=== PATIENT | male | born 1985 ===

== ENCOUNTER 2017-07-10 19:04 | Emergency (ER) | payer SELFPAY ==
[2017-07-10 19:30] VITALS: BP 135/90
[2017-07-10] MEDS ORDERED: TYLENOL PO ONE (19:49)
[2017-07-10 19:51] LABS: Basophils # (Auto) 0.1 K/mm3 (0.0-0.1); Basophils % (Auto) 2.1 % (0.0-1.8); Eosinophils # (Auto) 0.2 K/mm3 (0.0-0.4); Hematocrit 44.3 % (35.5-45.6); Hemoglobin 14.4 gm/dl (11.8-15.2); Lymphocytes # (Auto) 1.9 K/mm3 (1.2-5.4); Lymphocytes % (Auto) 41.5 % (13.4-35.0); Mean Corpuscular HGB Conc 33 % (32-34); Mean Corpuscular Hemoglobin 28 pg (28-32); Mean Corpuscular Volume 85 fl (84-94); Monocytes # (Auto) 0.3 K/mm3 (0.0-0.8); Monocytes % (Auto) 7.6 % (0.0-7.3); Platelet Count 169 K/mm3 (140-440); Red Blood Count 5.23 M/mm3 (3.65-5.03); Red Cell Distribution Width 13.9 % (13.2-15.2)
--- NOTE | 2017-07-10 19:58 | Emergency Department Report ---
HPI - General Chief Complaint: Syncope Time Seen by Provider: 07/10/17 19:28 - HPI HPI: 31-year-old male presents to the emergency department by EMS after he passed out at work earlier today. Patient says that he got very hot and then all of a sudden passed out. An IV was placed and the patient received 500 mL of IV fluid and round. Unknown how long the patient was unconscious but was not for very long and the patient is currently awake and alert. Currently he has no complaints. He does admit that he has passed out 3 or 4 times over the past 2 weeks. He previously was seen at another emergency department in [place] and says that he had some labs and a chest x-ray but never had a scan of his head done. He denies any past medical history. He is a tobacco smoker but denies any illicit drug use. No recent travel or sick contacts at home. He does not have a primary care physician. ED Past Medical Hx - Past Medical History Previous Medical History?: No - Surgical History Past Surgical History?: No - Social History Smoking Status: Current Every Day Smoker Substance Use Type: None - Medications Home Medications: Home Medications Medication Instructions Recorded Confirmed Last Taken Type No Known Home Medications [No 01/15/16 01/15/16 Unknown History Reported Home Medications] ED Review of Systems ROS: Stated complaint: SYNCOPE Other details as noted in HPI Comment: All other systems reviewed and negative Constitutional: denies: chills, fever Eyes: denies: eye pain, eye discharge, vision change ENT: denies: ear pain, throat pain Respiratory: denies: cough, shortness of breath, wheezing Cardiovascular: syncope. denies: chest pain Gastrointestinal: denies: abdominal pain, nausea, diarrhea Genitourinary: denies: urgency, dysuria Musculoskeletal: denies: back pain, joint swelling, arthralgia Skin: denies: rash, lesions Neurological: denies: headache, weakness, paresthesias Physical Exam - Physical Exam Vital Signs: Vital Signs 07/10/17 19:28 Temperature 98.7 F Pulse Rate 62 Respiratory 18 Rate Blood Pressure 135/90 O2 Sat by Pulse 100 Oximetry Physical Exam: GENERAL: The patient is well-developed well-nourished. HENT: Normocephalic. Atraumatic. Patient has moist mucous membranes. EYES: Extraocular motions are intact. Pupils equal reactive to light bilaterally. NECK: Supple. Trachea is midline. CHEST/LUNGS: Clear to auscultation. There is no respiratory distress noted. HEART/CARDIOVASCULAR: Regular. There is no tachycardia. There is no murmur. ABDOMEN: Abdomen is soft, nontender. Patient has normal bowel sounds. There is no abdominal distention. SKIN: Skin is warm and dry. NEURO: The patient is awake, alert, and oriented. The patient is cooperative. The patient has no focal neurologic deficits. The patient has normal speech and gait. Cranial nerves II through XII grossly intact. MUSCULOSKELETAL: There is no tenderness or deformity. There is no limitation range of motion. There is no evidence of acute injury. ED Course Vital Signs 07/10/17 19:28 Temperature 98.7 F Pulse Rate 62 Respiratory 18 Rate Blood Pressure 135/90 O2 Sat by Pulse 100 Oximetry ED Medical Decision Making - Lab Data Result diagrams: 07/10/17 19:35 07/10/17 19:35 - EKG Data -: EKG Interpreted by Me EKG shows normal: sinus rhythm, axis, intervals, QRS complexes (LVH), ST-T waves (early repolarization) Rate: bradycardia (53 bpm) - EKG Data When compared to previous EKG there are: previous EKG unavailable Interpretation: other (sinus rhythm with mild bradycardia, LVH with some early repolarization) - Radiology Data Radiology results: report reviewed CT of the head does not show any acute intracranial process including no ischemia, shift, mass, bleeding or skull fracture. - Medical Decision Making Patient presents after having a syncopal episode at work. He says it was due to the fact that it was very hot where he was working and standing for a long period of time. However since the patient says that he has had a few episodes of this over the past few weeks, I did a CT scan of the head resulted as normal. Labs are unremarkable and do not show any etiology of his symptoms. EKG did not show any signs of ST elevation [place] or dysrhythmia. The patient was reevaluated multiple times for multiple hours and has remained stable without any further episodes of passing out. No focal, motor or sensory deficits and his cranial nerves are intact. He has been instructed to follow-up with a primary care physician in the next few days and to return to the emergency Department with any worsening of his symptoms or any acute distress. - Differential Diagnosis vasovagal, orthostatic hypotension, TIA, dysrhythmia Critical Care Time: No Critical care attestation.: If time is entered above; I have spent that time in minutes in the direct care of this critically ill patient, excluding procedure time. ED Disposition Clinical Impression: Syncope Qualifiers: Syncope type: unspecified Qualified Code(s): R55 - Syncope and collapse Disposition: DC-01 TO HOME OR SELFCARE Is pt being admited?: No Condition: Stable Instructions: Syncope (ED) Additional Instructions: Please follow up with a primary care physician in the next few days. Return to the emergency Department with any worsening of your symptoms, any further episodes of passing out, or with any acute distress. Referrals: VIANEY VALADEZ MD [Staff Physician] - 3-5 Days Time of Disposition: 22:13
[2017-07-10 20:19] LABS: Alanine Aminotransferase 17 units/L (7-56); Albumin 3.9 g/dL (3.9-5); BUN/Creatinine Ratio 10; Blood Urea Nitrogen 9 mg/dL (9-20); Calcium 8.7 mg/dL (8.4-10.2); Hemolysis Index 16
--- NOTE | 2017-07-10 22:01 | Cat Scan Report ---
FINAL REPORT PROCEDURE: CT HEAD/BRAIN WO CON TECHNIQUE: Computerized tomography of the head was performed without contrast material. HISTORY: syncope COMPARISON: No prior studies are available for comparison. FINDINGS: There is no CT evidence of intracranial mass, hemorrhage, hydrocephalus, or acute territorial infarction. There is diffuse symmetric increased density of the dura. Calvarium is intact. Visualized paranasal sinuses and mastoids are aerated. IMPRESSION: No CT evidence of acute intracranial abnormality
== END 2017-07-10 23:02 | disposition home or self-care (01) ==
LOC: ED 19:04
DX: R55 Syncope and collapse (principal); F17.200 Nicotine dependence, unspecified, uncomplicated
CPT/HCPCS: 36415; 70450; 80053; 84443; 84484; 85025; 93005; 93010

== ENCOUNTER 2017-11-06 18:47 | Emergency (ER) | payer SELFPAY ==
[2017-11-06 18:54] VITALS: BP 124/77
[2017-11-06] MEDS ORDERED: BENADRYL PO ONE (20:24)
[2017-11-06] MEDS ORDERED: BOOSTRIX IM ONE (20:24)
[2017-11-06] MEDS ORDERED: MOTRIN PO ONE (20:24)
--- NOTE | 2017-11-06 21:11 | Emergency Department Report ---
ED General Adult HPI - General Chief complaint: Eye Problems Stated complaint: LFT EYE PAIN Time Seen by Provider: 11/06/17 20:17 Source: patient Mode of arrival: Ambulatory Limitations: No Limitations - History of Present Illness Initial comments: This is not a problem patient states he had an elbow to his left face with pain and swelling left cheek there is mild ecchymosis to the left cheek no eye pain no change in vision no dizziness no headache his abdomen 2 days ago playing basketball is mild abrasion the left cheek patient has not taken over-the- counter pain medicine Onset/Timin -: days(s) Location: face Radiation: non-radiation Severity scale (0 -10): 4 Quality: aching Consistency: intermittent Worsens with: none Associated Symptoms: denies other symptoms Treatments Prior to Arrival: none - Related Data Previous Rx's Medication Instructions Recorded Last Taken Type Cetirizine HCl [ZyrTEC] 10 mg PO DAILY #30 capsule 11/06/17 Unknown Rx Ibuprofen 800 mg PO TID PRN #30 tablet 11/06/17 Unknown Rx Allergies Allergy/AdvReac Type Severity Reaction Status Date / Time No Known Allergies Allergy Verified 11/06/17 18:51 ED Review of Systems ROS: Stated complaint: LFT EYE PAIN Other details as noted in HPI Constitutional: denies: chills, fever Eyes: denies: eye pain, eye discharge, vision change ENT: denies: ear pain, throat pain Respiratory: denies: cough, shortness of breath, wheezing Cardiovascular: denies: chest pain, palpitations Endocrine: no symptoms reported Gastrointestinal: denies: abdominal pain, nausea, diarrhea Genitourinary: denies: urgency, dysuria Musculoskeletal: denies: back pain, joint swelling, arthralgia Skin: other (abrasion left cheeck periorbital region ). denies: rash, lesions Neurological: denies: headache, weakness, paresthesias Psychiatric: denies: anxiety, depression Hematological/Lymphatic: denies: easy bleeding, easy bruising ED Past Medical Hx - Past Medical History Previous Medical History?: No - Surgical History Past Surgical History?: No - Social History Smoking Status: Never Smoker Substance Use Type: None - Medications Home Medications: Home Medications Medication Instructions Recorded Confirmed Last Taken Type Cetirizine HCl [ZyrTEC] 10 mg PO DAILY #30 capsule 11/06/17 Unknown Rx Ibuprofen 800 mg PO TID PRN #30 tablet 11/06/17 Unknown Rx ED Physical Exam - General Limitations: No Limitations General appearance: alert, in no apparent distress - Head Head exam: Present: normocephalic - Expanded Head Exam Expanded Head exam: Present: contusion. Absent: hematoma, racoon eyes, vaelnzuela's sign, general tenderness, tenderness of temporal artery, CSF rhinorrhea, CSF otorrhea 1 - left periorbital abrasion mild ecchymosis deformity no crepitus no stepoff , eye perrla eomi, conjunctivae clear no eye entrapment - Eye Eye exam: Present: normal appearance, PERRL, EOMI, periorbital tenderness. Absent: conjunctival injection, periorbital swelling Pupils: Present: normal accommodation - Expanded Eye Exam Expanded Pupils: Regular, Round: Bilateral Sclera/Conjunctival: Normal Inspection: Bilateral Anterior chamber: Normal Inspection: Bilateral Visual acuity (R) = 20/: 20 Visual acuity (L) = 20/: 20 With correction: No - ENT ENT exam: Present: normal orophraynx, mucous membranes moist, TM's normal bilaterally, normal external ear exam - Neck Neck exam: Present: normal inspection, full ROM. Absent: lymphadenopathy, thyromegaly - Respiratory Respiratory exam: Present: normal lung sounds bilaterally. Absent: respiratory distress, wheezes, stridor, chest wall tenderness - Cardiovascular Cardiovascular Exam: Present: regular rate, normal rhythm, normal heart sounds. Absent: systolic murmur, diastolic murmur, rubs, gallop - GI/Abdominal GI/Abdominal exam: Present: soft, normal bowel sounds - Rectal Rectal exam: Present: deferred - Extremities Exam Extremities exam: Present: normal inspection - Back Exam Back exam: Present: normal inspection, full ROM. Absent: tenderness - Neurological Exam Neurological exam: Present: alert, oriented X3, CN II-XII intact, normal gait, reflexes normal - Psychiatric Psychiatric exam: Present: normal affect, normal mood - Skin Skin exam: Present: warm, dry, intact, normal color. Absent: rash ED Course Vital Signs 11/06/17 18:51 Temperature 99 F Pulse Rate 45 L Respiratory 18 Rate Blood Pressure 124/77 O2 Sat by Pulse 100 Oximetry ED Medical Decision Making - Medical Decision Making This is a left cheek abrasion with mild periorbital ecchymosis and bruising there is no entrapment PERRLA EOMI no crepitus patient refuses x-ray facial there is no conjunctivitis plan NSAIDs Zyrtec and ibuprofen and follow with PCP in 2-3 days patient verbalizes understanding and agreement was signed be DC' d home stable condition at this time Critical care attestation.: If time is entered above; I have spent that time in minutes in the direct care of this critically ill patient, excluding procedure time. ED Disposition Clinical Impression: Facial abrasion Qualifiers: Encounter type: initial encounter Qualified Code(s): S00.81XA - Abrasion of other part of head, initial encounter Facial contusion Qualifiers: Encounter type: initial encounter Qualified Code(s): S00.83XA - Contusion of other part of head, initial encounter Disposition: DC-01 TO HOME OR SELFCARE Is pt being admited?: No Does the pt Need Aspirin: No Condition: Good Instructions: Contusion in Adults (ED), Abrasion (ED) Prescriptions: Cetirizine HCl [ZyrTEC] 10 mg PO DAILY #30 capsule Ibuprofen 800 mg PO TID PRN #30 tablet PRN Reason: pain Referrals: [facility] [Outside] - 3-5 Days Forms: Work/School Release Form(ED) Time of Disposition: 21:19
== END 2017-11-06 21:30 | disposition home or self-care (01) ==
LOC: ED 18:47
DX: S00.83XA Contusion of other part of head, initial encounter (principal); X58.XXXA Exposure to other specified factors, initial encounter; Y93.67 Activity, basketball; Y92.89 Other specified places as the place of occurrence of the external cause; Y99.8 Other external cause status
CPT/HCPCS: 90471; 90715; 99282